=== PATIENT | male | born 1980 | race African-American/Black ===

== ENCOUNTER 2021-10-17 11:32 | Emergency (ER) | payer OTHER ==
[~2021-10-17] VITALS: Ht 190.5 cm; Wt 82.1 kg
[2021-10-17] MEDS ORDERED: KETO10TAB PO (15:50)
[2021-10-17 16:14] VITALS: BP 118/62
== END 2021-10-17 16:17 | disposition home or self-care (01) ==
LOC: M ED 11:32
DX: S46.001A Unspecified injury of muscle(s) and tendon(s) of the rotator cuff of right shoulder, initial encounter (principal); X58.XXXA Exposure to other specified factors, initial encounter; Y92.89 Other specified places as the place of occurrence of the external cause